=== PATIENT | male | born 1970 | race Caucasian/White ===

== ENCOUNTER 2017-06-07 13:28 | Emergency (ER) | payer OTHER ==
[2017-06-07 13:45] VITALS: BP 139/102; PULSE 82; RESP 16; TEMP 98.8; O2SAT 99
== END 2017-06-07 14:52 | disposition left against medical advice (07) ==
DX: Z53.21 Procedure and treatment not carried out due to patient leaving prior to being seen by health care provider (principal)

== ENCOUNTER 2017-06-11 12:08 | Emergency (ER) | payer OTHER ==
[2017-06-11 12:20] VITALS: RESP 16; TEMP 98.4; O2SAT 96
--- NOTE | 2017-06-11 12:29 | CPEKG ---
Heart Rate: 75 RR Interval: 800 P-R Interval: 176 QRSD Interval: 102 QT Interval: 384 QTC Interval: 429 P [place]: 72 QRS [place]: 5 T Wave [place]: 41 EKG Severity - NORMAL ECG - EKG Impression: SINUS RHYTHM Electronically Signed By: Robert Rodrigues 13-Jun-2017 17:58:58
[2017-06-11] MEDS ORDERED: NS 1,000 ML IV ONE (12:56)
[2017-06-11] MEDS ORDERED: MECLIZINE HCL 25 MG TAB PO ONE (12:56)
--- NOTE | 2017-06-11 13:21 | EDPHY ---
H & P Time Seen by Provider: 06/11/17 12:31 HPI/ROS: CHIEF COMPLAINT: Dizziness, fatigue, just do not feel right HISTORY OF PRESENT ILLNESS: This is a 46-year-old male who states that over the last week he has been bothered with symptoms of dizziness which he describes as very brief intermittent episodes of significantly feeling off balance, which may last only 10 seconds, but is left with a persistent feeling of being very tired, fatigued, and just feeling "off ". Patient states he has had similar symptoms rarely over the last 2-3 years. Primary complaint is not of vertiginous symptoms or discoordination or nausea or gait problems but a complaint that his brain feels like it is moving in his head. Patient's symptoms do not appear to be precipitated by movement. He can identify no clear exacerbating or relieving factors. Patient denies any fever, upper respiratory infection symptoms. He denies any tinnitus or hearing loss. He does report pressure in his ears. He denies any chest pain, palpitations, fainting, or diaphoresis. He denies any nausea or vomiting. He denies any urinary complaints. He denies any numbness or tingling in his arms or legs. No double vision. No facial numbness or tingling. No speech difficulties. He does report episodes of what sounds like scotomata followed by visual field cut which resolved on its own. The last time this occurred was many months ago. REVIEW OF SYSTEMS: Aside from elements discussed in the HPI, a comprehensive 10-point review of systems was reviewed and is negative. PAST MEDICAL HISTORY: Patient denies. Specifically no history of diabetes, coronary artery disease, hypertension, stroke, head trauma. FAMILY HISTORY: Patient's father had MS at the age of 35 and of a heart attack at the age of 50. SOCIAL HISTORY: Marijuana use, occasional alcohol use, nonsmoker. VITAL SIGNS Reviewed by me. GENERAL: Well-developed, well-nourished, resting comfortably in no respiratory distress. HEENT: Atraumatic. Eyes: No icterus, no injection. No nystagmus. Gazing to the left causes very mild dizziness. Tympanic membranes are clear bilaterally. Mouth: moist mucous membranes. No erythema or lesions. Neck: supple with no adenopathy. No carotid bruit. LUNGS: Clear to auscultation bilaterally, no wheezes, rhonchi or rales. CARDIAC: Regular rate and rhythm, no rubs, murmurs or gallops. ABDOMEN: Soft, nontender, nondistended, bowel sounds normal. BACK: No CVA tenderness. EXTREMITIES: No trauma. No edema. Range of motion is normal throughout. NEURO: Alert and oriented, cranial nerves 2-12 are intact. Motor strength 5/ 5 throughout. Sensation intact throughout. Normal gait. Normal finger-to- nose. Normal [id number]. SKIN: Warm and dry, no rash. PSYCHIATRIC: Normal mentation, no agitation. Smoking Status: Former smoker Constitutional: Initial Vital Signs Temperature (C) 36.9 C 06/11/17 12:12 Heart Rate 83 06/11/17 12:12 Respiratory Rate 16 06/11/17 12:12 Blood Pressure 130/87 H 06/11/17 12:12 O2 Sat (%) 96 06/11/17 12:12 O2 Delivery Mode Room Air Allergies/Adverse Reactions: No Known Allergies Allergy (Verified 06/11/17 12:12) Home Medications: Medication Instructions Recorded Meclizine HCl [Meclizine HCl 25 mg 12.5 - 25 mg PO BID #20 tab 06/11/17 (RX,OTC)] Medical Decision Making ED Course/Re-evaluation: 46-year-old male presenting with a week of persistent feeling "off ". No clear exacerbating or relieving factors. Does not appear to be related to positioning. No headache. No focal neurologic deficit identified. IV was placed and patient received normal saline. Laboratory evaluation including CBC, chemistries, and troponin was obtained. Meclizine was administered. Patient was reexamined after receiving fluids and meclizine. His laboratory evaluation is reassuring. He reports improvement in his symptoms. We discussed my concerns regarding his symptom complex and that it may represent a significant neurologic issue. Symptoms have been present for 2 years intermittently and more persistent over the last week. Patient was advised to follow up with Dr. Pruett without fail on Tuesday for consideration of further evaluation including neurologic consultation as well as possible MRI. Differential Diagnosis: Differential diagnosis of the patient's dizziness was considered including but not limited to peripheral and central causes of vertigo, cardiac arrhythmias, cardiac ischemia, electrolyte disturbances, neurologic causes, orthostatic causes including dehydration, and blood loss. - Data Points Laboratory Results: Laboratory Results 06/11/17 13:20 06/11/17 13:20 Medications Given: Discontinued Medications Sodium Chloride (Ns) 1,000 mls @ 0 mls/hr IV ONCE ONE; Wide Open PRN Reason: Protocol Stop: 06/11/17 12:57 Last Admin: 06/11/17 13:31 Dose: 1,000 mls Meclizine HCl (Meclizine Hcl) 25 mg PO EDNOW ONE Stop: 06/11/17 12:57 Last Admin: 06/11/17 13:31 Dose: 25 mg Departure - Departure Disposition: Home, Routine, Self-Care Clinical Impression: Lightheadedness Condition: Good Instructions: Meclizine (By mouth), Vertigo (ED), Lightheadedness (ED), Dizziness (ED) Additional Instructions: No clear cause of your symptoms has been identified, however, your blood work, EKG, and vital signs are all reassuring. I recommend that you take meclizine 12.5-25 mg 2 times a day for the next several days to see if this will help with her symptoms. I recommend that she follow up with Dr. Pruett early next week for further testing. MRI of the brain may be appropriate at this point. Please return to the emergency department or seek care urgently if your symptoms are worsening, if you developed numbness or tingling on your face, arms , or legs, if you developed headache, visual changes, double vision, or feeling off balance. Referrals: NONE *PRIMARY CARE P,. [Primary Care Provider] - As per Instructions DELBERT PRUETT [Medical Doctor] - As per Instructions Prescriptions: Meclizine HCl [Meclizine HCl 25 mg (RX,OTC)] 12.5 - 25 mg PO BID #20 tab
[2017-06-11 13:28] LABS: % IMMATURE GRANULYOCYTES 0.2 % (0.0-1.1); ABSOLUTE IMMATURE GRANULOCYTES 0.01 10^3/uL (0.00-0.10); ADD DIFF? NO; ADD MORPH? NO; ADD SCAN? NO; ATYPICAL LYMPHOCYTE FLAG 10 (0-99); FRAGMENT RBC FLAG 0 (0-99); HEMATOCRIT 40.4 % (40.0-51.0); HEMOGLOBIN 14.2 g/dL (13.7-17.5); LEFT SHIFT FLG 0 (0-99); LIPEMIA HEMOLYSIS FLAG 90 (0-99); MEAN CELL HEMOGLOBIN 28.5 pg (27.9-34.1); MEAN CELL HEMOGLOBIN CONCENTR. 35.1 g/dL (32.4-36.7); MEAN PLATELET VOLUME 9.5 fL (8.7-11.7); PLATELET CLUMPS FLAG 0 (0-99); PLATELET COUNT 285 10^3/uL (150-400); RED BLOOD CELL COUNT 4.99 10^6/uL (4.40-6.38); RED CELL DISTRIBUTION WIDTH 12.3 % (11.5-15.2)
[2017-06-11 13:42] LABS: ANION GAP 13 mEq/L (8-16); CARBON DIOXIDE 23 mEq/l (22-31); CHLORIDE 107 mEq/L (97-110); CREATININE 0.7 mg/dL (0.7-1.3); GLOMERULAR FILTRATION RATE > 60; GLUCOSE 106 mg/dL (70-100); SODIUM 143 mEq/L (134-144)
[2017-06-11 13:53] LABS: TROPONIN I < 0.012 ng/mL (0.000-0.034)
[2017-06-11 14:34] VITALS: BP 113/76; PULSE 76
== END 2017-06-11 14:33 | disposition home or self-care (01) ==
LOC: CED 12:08
DX: R42 Dizziness and giddiness (principal); E86.9 Volume depletion, unspecified; Z87.891 Personal history of nicotine dependence
CPT/HCPCS: 80048-PO; 84484-PO; 85025-PO

== ENCOUNTER → 2018-07-03 | Outpatient (CLI) | payer OTHER | LOC: FIMAGING 10:04 | PROVIDERS: ATTEND Otolaryngology | DX: R59.0 Localized enlarged lymph nodes (principal) ==

== ENCOUNTER → 2018-07-19 | Outpatient (CLI) | payer OTHER ==
[~2018-07-19] MED LIST: LIDOCAINE 1% 300 MG/30 ML SDV ONE
== END ==
LOC: FIMAGING 08:09
PROVIDERS: ATTEND Otolaryngology
PROC: 07B23ZX Excision of Left Neck Lymphatic, Percutaneous Approach, Diagnostic (ICD-10-PCS; principal; 2018-07-19)
DX: R59.0 Localized enlarged lymph nodes (principal)
CPT/HCPCS: 88184-90; 88185-91